=== PATIENT | male | born 1950 | race Native Hawaiian/Other Pacific Islander ===

== ENCOUNTER 2022-04-18 11:49 | Emergency (ER) | payer OTHER ==
[~2022-04-18] VITALS: Ht 188 cm; Wt 71.8 kg
[2022-04-18 11:50] VITALS: BP 157/106; TEMP 97.8
[2022-04-18 12:46] LABS: PLATELET COUNT 150 K/uL (142-355)
[2022-04-18 12:52] LABS: POTASSIUM 3.8 mmol/L (3.6-5.2)
[2022-04-18] MEDS ORDERED: MEMA5TAB PO (14:44)
[2022-04-18] MEDS ORDERED: VALTREX500 MG PO (14:45)
[2022-04-18] MEDS ORDERED: ELIQUIS5 MG PO (14:46)
[2022-04-18] MEDS ORDERED: FLUOROMETHOL0.1 % OPTH (14:47)
== END 2022-04-18 13:31 | disposition other institution (70) ==
LOC: ED 11:49
PROVIDERS: Family Medicine
DX: F03.90 Unspecified dementia, unspecified severity, without behavioral disturbance, psychotic disturbance, mood disturbance, and anxiety (principal); Z91.83 Wandering in diseases classified elsewhere; Z11.52 Encounter for screening for COVID-19; Z04.6 Encounter for general psychiatric examination, requested by authority
CPT/HCPCS: 36415; 80053; 81000; 85027; 87635; 93005; 99283; U0003